=== PATIENT | female | born 1960 | race Caucasian/White ===

== ENCOUNTER → 2022-03-01 11:15 | Outpatient (ROUT) | payer BC, SELFPAY ==
[2022-03-01 12:46] LABS: COVID19 -Nasal RAPID Negative (Negative)
== END ==
PROVIDERS: Visit Provider Physician Assistant
DX: Z20.822 Contact with and (suspected) exposure to COVID-19 (principal)
CPT/HCPCS: 87635

== ENCOUNTER → 2023-01-06 13:37 | Outpatient (CLI) | payer BC, SELFPAY ==
--- NOTE | 2023-01-06 13:40 | DI.RAD.S_ITS ---
PROCEDURE: XR LUMBAR SPINE MIN 4V INDICATIONS: BACK PAIN TECHNIQUE: 5 views of the lumbar spine were acquired, including bilateral oblique views. COMPARISON: None. FINDINGS: Bones: 5 nonrib-bearing vertebrae are present. Grade 1 anterolisthesis of L4 on L5, likely due to facet arthrosis. Facet arthrosis L3 through S1. Moderate disc height loss at L4-5 and L5-S1, with mild disc height loss at remaining levels. Soft tissues: Overlying bowel gas pattern is normal. No suspicious soft tissue calcifications. Oblique images: No pars defects. IMPRESSION: Mild to moderate, multilevel degenerative disc disease and facet arthrosis. Grade 1 anterolisthesis of L4 on L5. Dictated by: Gabino Beck M.D. on 01/06/2023 at 14:20 Approved by: Gabino Beck M.D. on 01/06/2023 at 14:21
== END ==
PROVIDERS: PCP Registered Nurse Diabetes Educator; Referring Provider Physical Medicine & Rehabilitation; Visit Provider Physical Medicine & Rehabilitation
DX: M47.816 Spondylosis without myelopathy or radiculopathy, lumbar region (principal); M47.817 Spondylosis without myelopathy or radiculopathy, lumbosacral region; M51.36 Other intervertebral disc degeneration, lumbar region; M51.37 Other intervertebral disc degeneration, lumbosacral region; M43.16 Spondylolisthesis, lumbar region; M54.9 Dorsalgia, unspecified
CPT/HCPCS: 72110

== ENCOUNTER → 2023-01-25 15:17 | Outpatient (CLI) | payer BC, SELFPAY ==
--- NOTE | 2023-01-25 15:19 | DI.MRI.S_ITS ---
PROCEDURE: MR LUMBAR SPINE WO CON INDICATIONS: L5/S1 spondylolisthesis TECHNIQUE: Noncontrast sagittal T1 spin echo and T2 fast echo, sagittal STIR, and T2 fast spin echo through the lumbar spine. In cases with scoliosis, additional coronal T2 fast spin echo may be performed. COMPARISON: [facility], , L-SPINE WITHOUT CONTRAST, 09/02/2011, 11:01. FINDINGS: Image quality: Excellent. Alignment and Curvature: There is normal bony alignment. Bone Marrow: Marrow is of normal overall signal. No acute vertebral body compression fractures. Spinal Cord: Conus medullaris terminates at the L1 level. Visualized cord demonstrates normal signal and size. Paraspinous Soft Tissues: No paravertebral masses. T12-L1: Normal appearance. L1-L2: Broad-based disc bulge. Mild facet ligamentum flavum hypertrophy. No canal stenosis. No foraminal stenosis. Findings are unchanged when compared with the MRI dated July 02, 2012 L2-L3: Broad-based disc bulge. Mild disc desiccation and height loss. Moderate facet ligamentum flavum hypertrophy. Mild canal stenosis. Mild bilateral foraminal stenosis. These findings have slightly increased in severity when compared with the 2012 study. L3-L4: Moderate disc desiccation and height loss. Broad-based disc bulge. Severe facet ligamentum flavum hypertrophy. Severe canal stenosis. Mild right and moderate left foraminal stenosis. These findings of increased in severity when compared with the prior study. L4-L5: Moderate disc desiccation and height loss. Broad-based disc bulge. Severe facet and ligamentum flavum hypertrophy. Severe canal stenosis. Moderate bilateral foraminal narrowing. There is now mild flattening of the bilateral exiting nerve roots which is a new finding when compared with the prior study. L5-S1: Severe disc desiccation and height loss. Moderate facet ligamentum flavum hypertrophy. No canal stenosis. Mild bilateral foraminal stenosis. The degree of disc desiccation and height loss is increased when compared with the prior study. IMPRESSION: 1. Increase in canal stenosis and foraminal stenosis at L2-3, L3-4, L4-5 and L5-S1 when compared with the study dated September 02, 2011. Severe canal stenosis is present at L3-4 and L4-5. Moderate foraminal stenosis at L4-5 now demonstrates flattening of the bilateral exiting nerve roots. Dictated by: Fariha Collazo M.D. on 01/25/2023 at 16:25 Approved by: Fariha Collazo M.D. on 01/25/2023 at 16:32
== END ==
PROVIDERS: PCP Registered Nurse Diabetes Educator; Referring Provider Physical Medicine & Rehabilitation; Visit Provider Physical Medicine & Rehabilitation
DX: M47.816 Spondylosis without myelopathy or radiculopathy, lumbar region (principal); M43.17 Spondylolisthesis, lumbosacral region; M48.061 Spinal stenosis, lumbar region without neurogenic claudication; M48.07 Spinal stenosis, lumbosacral region
CPT/HCPCS: 72148

== ENCOUNTER 2023-02-08 13:55 | Outpatient (CLI) | payer BC, SELFPAY ==
[2023-02-08] VITALS (10 sets, daily range): BP systolic 107–141; BP diastolic 59–76; PULSE 71–84; RESP 12–21; TEMP 36.8; O2SAT 90–97
--- NOTE | 2023-02-08 13:59 | DI.RAD.S_ITS ---
PROCEDURE: PAIN L/S FACET INJ/BLK 1ST DARREL COMPARISON: None. INDICATIONS: SPONDYLOSIS FINDINGS: Access needle tips in the bilateral L4-L5 and L5-S1 facet joints. Injection of small amount of contrast material confirms positioning of the needle tips in the facet joints and extra thecal positioning. IMPRESSION: Access needle tips in the bilateral L4-L5 and L5-S1 facet joints for facet joint injection. Dictated by: Mitali Montes MD, PhD on 02/08/2023 at 15:31 Approved by: Mitali Montes MD, PhD on 02/08/2023 at 15:32
[2023-02-08] MEDS: MIDAZOLAM 2 MG/2 ML VIAL 4 MG IV (14:57)
[2023-02-08] MEDS: IOPAMIDOL 15 ML VIAL 3 ML INJ (15:00)
[2023-02-08] MEDS: BUPIVACAINE 0.5% (PF) 10 ML VIAL 5 ML INJ (15:00)
[2023-02-08] MEDS: BETAMETHASONE 30 MG/5 ML MDV 12 MG INJ (15:00)
[2023-02-08] MEDS: LIDOCAINE 1% 20 ML 5 ML INJ (15:00)
--- NOTE | 2023-02-08 15:16 | P.PCN_ITS ---
Date/Time/Diagnoses Date of procedure: 02/08/23 Time of procedure: 15:16 Pre-procedure diagnosis: 1. FACET ARTHROPATHY 2. AXIAL LBP 3. MULTILEVEL DDD Post-procedure diagnosis: same Procedure Notes Procedure: 1. FLUOROSCOPICALLY GUIDED CONTRAST CONTROLLED FACET JOINT INJECTIONS BILATERAL L4/5, L5/S1 Indications: Sunitha is referred by GORDON De Paz for treatment of Axial LBP Physician: Gary Acosta Total Fluoroscopy time (seconds): 18 Total sedation minutes: 19 Complications: none Procedure in detail & Post-procedure care: FINDINGS Multilevel Facet Arthropathy with Clinically significant axial LBP DESCRIPTION OF PROCEDURE Fluoroscopically guided, contrast-controlled bilateral L4/5, L5/S1 facet joint injections. Following review of allergy and review of potential side effects and complications, including, but not necessarily limited to, infection, allergic reaction, local tissue breakdown, stroke, temporary or permanent nerve injury, paralysis, and possible , the patient indicated that the patient understood and agreed to proceed. An informed consent document was signed by the patient, witnessed by a nurse, and placed in the patient's chart. Additionally, other treatment options including medications, modalities, and physical therapy were reviewed with the patient. After review of previous anaesthesic history and IV conscious sedation the patient was deemed safe to proceed with today?s procedure with IV conscious sedation as ASA class II designation. Safety time-out was performed to confirm patient ID, procedure to be performed and site of procedure. IV sedation was accomplished with a combination of 2mg of Versed was administered by the RN after DO order, titrated to patient comfort during the course of the procedure while the patient remained responsive to all verbal commands In the prone position, following sterile prep and drape of the lumbar region, the posterior aspect of the L4/5, L5/S1 facet joints were identified fluoroscopically. The skin was anesthetized via a 25-gauge 1.5inch needle with 1% lidocaine solution into the corresponding facet joints. At this point, a 22- gauge 3.5-inch spinal needle was atraumatically introduced and advanced under fluoroscopic guidance into the corresponding facet joints. Following negative aspiration, injections of approximately 0.2cc of Isovue 200 confirmed interarticular placement without vascular uptake. The identical procedure was then performed at the L4/5, L5/S1 facet joints on the left. Radiological data, including multiple fluoroscopic views of the lumbosacral spine, reveal a spinal needle at the L4/5, L5/S1 facet joints bilaterally. Subsequent views show flow of contrast material both superiorly and inferiorly within the joint space without vascular or intrathecal uptake. At this point, a total of 0.5cc including a mixture of 0.25cc Marcaine and 0.25cc betamethasone was injected without complication into each of the corresponding facet joints. The patient tolerated the procedure well without signs or symptoms of complications prior to transfer to the recovery area continued monitoring without incident. The patient was then transferred to the recovery area where they were observed for an appropriate period of time after the injection. The patient reported a VAS score of 8 prior to the procedure and a post- procedure VAS of 2. POST OP INSTRUCTIONS The patient was provided a Pain Log to continue to record their response to the target-specific procedure prior to follow-up visit with their referring physician. Additionally, specific post-injection care instructions and a contact number to our office were provided if concerns arise regarding possible complications associated with the procedure are suspected.
== END 2023-02-08 15:31 | disposition home or self-care (01) ==
LOC: RAD 13:56
PROVIDERS: PCP Registered Nurse Diabetes Educator; Referring Provider Physical Medicine & Rehabilitation; Visit Provider Physical Medicine & Rehabilitation
DX: M47.816 Spondylosis without myelopathy or radiculopathy, lumbar region (principal); M47.817 Spondylosis without myelopathy or radiculopathy, lumbosacral region; M51.36 Other intervertebral disc degeneration, lumbar region; M51.37 Other intervertebral disc degeneration, lumbosacral region
CPT/HCPCS: 64493; 64494; 99152; J0702; J2250

== ENCOUNTER → 2023-04-04 09:14 | Outpatient (CLI) | payer BC, SELFPAY ==
[2023-04-04 11:31] LABS: Hematocrit 44.6 % (36-46); Hemoglobin 14.7 g/dL (12.0-16.0); Mean Corpuscular Hemoglobin 28.6 PG (26-34); Mean Corpuscular Volume 86.6 fL (80-100); Platelet Count 230 X10^3/uL (150-400); Red Blood Cell Count 5.15 X10^6/uL (4.0-5.2); Red Cell Distribution Width 14.3 % (11.6-14.8); White Blood Cell Count 6.5 X10^3/uL (4.5-11.0)
[2023-04-04 11:43] LABS: Hemoglobin A1C% w Est Avg Glu 6.7 % (4.0-6.0)
[2023-04-04 11:49] LABS: Alanine Aminotransferase 12 IU/L (<35); Albumin 4.3 g/dL (3.5-5.0); Albumin Globulin Ratio 1.2 (1.0-2.8); Alkaline Phosphatase 66 U/L (38-126); Aspartate Aminotransferase 19 IU/L (14-36); BUN Creatinine Ratio 19.7 (6-22); Bilirubin Total 0.6 mg/dL (0.2-1.3); Blood Urea Nitrogen 15 mg/dL (7-17); Calcium 9.8 mg/dL (8.4-10.2); Carbon Dioxide 30 mmol/L (22-32); Chloride 101 mmol/L (98-107); Cholesterol 249 mg/dL (140-199); Estimated Glomerular Filt Rate > 60 mL/min (>60); Globulin 3.7 g/dL (1.7-4.1); Glucose 156 mg/dL (80-110); HDL Cholesterol 42 mg/dL (40-60); HEMOLYSIS < 15 (0-50); LDL Cholesterol Calculated 179 mg/dL (<100); Potassium 4.1 mmol/L (3.4-5.1); Sodium 139 mmol/L (137-145); Triglycerides 139 mg/dL (35-150)
[2023-04-04 12:08] LABS: HEMOLYSIS < 15 (0-50); Iron 93 ug/dL (37-170)
[2023-04-04 12:18] LABS: Percent Iron Saturation 29 % (15-50); Total Iron Binding Capacity 323 ug/dL (265-497); Transferrin 239 mg/dL (206-381)
[2023-04-04 12:24] LABS: Free T4, Direct Thyroxine 0.74 ng/dL (0.78-2.19)
[2023-04-04 12:25] LABS: Ferritin 60 ng/mL (11-264)
[2023-04-04 13:18] LABS: Creatinine Urine Random 158.1 mg/dL
[2023-04-04 13:22] LABS: Microalbumi Creatinin Ratio Ur 5.6 ug/mg CR (<30); Microalbumin Urine Random 0.9 mg/dL (0-1.6)
== END ==
PROVIDERS: PCP Registered Nurse Diabetes Educator; Referring Provider Registered Nurse Diabetes Educator; Visit Provider Registered Nurse Diabetes Educator
DX: E11.9 Type 2 diabetes mellitus without complications (principal); G25.81 Restless legs syndrome; Z00.00 Encounter for general adult medical examination without abnormal findings
CPT/HCPCS: 36415; 80053; 80061; 82043; 82570; 82728; 83036; 83540; 83550; 84439; 84443; 85027

== ENCOUNTER → 2023-07-20 07:39 | Outpatient (CLI) | payer BC, SELFPAY ==
[2023-07-20 09:06] LABS: Cholesterol 200 mg/dL (140-199); HDL Cholesterol 41 mg/dL (40-60); LDL Cholesterol Calculated 98 mg/dL (<100); Triglycerides 305 mg/dL (35-150)
[2023-07-20 09:08] LABS: Hemoglobin A1C% w Est Avg Glu 6.9 % (4.0-6.0)
[2023-07-20 09:30] LABS: Free T4, Direct Thyroxine 0.53 ng/dL (0.78-2.19)
[2023-07-20 09:44] LABS: Thyroid Stimulating Hormone 3.45 uIU/mL (0.47-4.68)
[2023-07-21 07:38] LABS: Thyroid Peroxidase Antibodies 100 IU/mL (0-34); Triiodothyronine T3 Total 76 ng/dL (71-180)
== END ==
PROVIDERS: PCP Registered Nurse Diabetes Educator; Referring Provider Registered Nurse Diabetes Educator; Visit Provider Registered Nurse Diabetes Educator
DX: E11.9 Type 2 diabetes mellitus without complications (principal); Z85.41 Personal history of malignant neoplasm of cervix uteri; E07.9 Disorder of thyroid, unspecified; E78.5 Hyperlipidemia, unspecified
CPT/HCPCS: 36415; 80061; 83036; 84439; 84443; 84480; 86376

== ENCOUNTER → 2023-08-15 09:01 | Outpatient (CLI) | payer BC, SELFPAY ==
--- NOTE | 2023-08-15 09:52 | DI.MRI.S_ITS ---
PROCEDURE: MR BRAIN (PITUITARY) WWO CON INDICATIONS: lab evidence of central hypothyroidism TECHNIQUE: Noncontrast sagittal and axial FLAIR, axial gradient echo, axial diffusion and ADC through the brain. Thin-slice sagittal and coronal T1 spin echo, coronal T2 fast spin echo through the pituitary. After the administration contrast, optional dynamic coronal T1 spin echo, thin-slice coronal and sagittal T1 spin echo images through the pituitary fossa; axial and coronal and sagittal T1 spin echo with fat saturation through the brain. COMPARISON: None. FINDINGS: Image quality: Excellent. Pituitary Gland: Normal in size signal characteristics. Appropriate enhancement. Infundibulum within normal limits. No suprasellar extension. However, there is a homogeneously enhancing extra-axial mass lesion associated with the left anterior free edge of the tentorial incisura consistent with a meningioma. Mass is equally distributed across the tentorium, and does extend into the left cavernous sinus. Cavernous ICA flow voids as well as Meckel's cave are preserved. Meningioma measures overall 2.0 x 1.8 by 1.5 cm. There is effacement of the prepontine cistern and mass effect on the left 5th trigeminal nerve as it enters Meckel's cave CSF Spaces: Ventricles are normal in size and shape. Basal cisterns are patent. No extra-axial fluid collections. Brain: No intracranial bleeds or mass effects. No abnormal intracranial enhancement. Tavarez-white matter interface is intact. Diffusion weighted images demonstrate no acute infarct. Brainstem is normal. Normal intravascular flow voids are present. Skull and face: Calvarial marrow is normal in signal. Orbits appear normal. Sinuses: Sinuses and mastoids are clear. IMPRESSION: Unremarkable pituitary gland without evidence of adenoma. 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 on 08/15/2023 at 15:16
[2023-08-15 11:51] LABS: Prolactin 9.9 ng/mL (3.0-18.6)
[2023-08-15 11:52] LABS: Follicle Stimulating Hormone 30.2 mIU/mL; Luteinizing Hormone 28.4 mIU/mL
[2023-08-15 12:07] LABS: Estradiol, Total 24.3 pg/mL; Testosterone 23.8 ng/dL (5.71-77.0)
[2023-08-17 15:09] LABS: IGF-1 175 ng/mL (57-202)
== END ==
PROVIDERS: PCP Registered Nurse Diabetes Educator; Referring Provider Registered Nurse Diabetes Educator; Visit Provider Registered Nurse Diabetes Educator
DX: E03.8 Other specified hypothyroidism (principal); E34.9 Endocrine disorder, unspecified; D32.9 Benign neoplasm of meninges, unspecified
CPT/HCPCS: 70553; 82670; 83001; 83002; 84146; 84305; 84403; A9579

== ENCOUNTER → 2023-10-21 09:53 | Outpatient (CLI) | payer BC, SELFPAY ==
[2023-10-21 11:43] LABS: Hemoglobin A1C% w Est Avg Glu 6.9 % (4.0-6.0)
[2023-10-21 11:56] LABS: Cholesterol 188 mg/dL (140-199); HDL Cholesterol 50 mg/dL (40-60); LDL Cholesterol Calculated 112 mg/dL (<100); Triglycerides 128 mg/dL (35-150)
== END ==
PROVIDERS: PCP Registered Nurse Diabetes Educator; Referring Provider Registered Nurse Diabetes Educator; Visit Provider Registered Nurse Diabetes Educator
DX: E78.5 Hyperlipidemia, unspecified (principal); E11.9 Type 2 diabetes mellitus without complications
CPT/HCPCS: 36415; 80061; 83036

== ENCOUNTER → 2023-11-22 09:15 | Outpatient (CLI) | payer BC, SELFPAY ==
--- NOTE | 2023-11-22 09:16 | DI.MRI.S_ITS ---
PROCEDURE: MR HEAD/BRAIN WO/W CON INDICATIONS: 3 mo fu L cavernous sinus Meningioma TECHNIQUE: Noncontrast axial T1 spin echo, axial T2 fast spin echo, sagittal and axial FLAIR, coronal T2 fast spin echo, axial gradient echo, axial diffusion and ADC through the brain. After the administration of contrast, axial and coronal and sagittal T1 spin echo with fat saturation through the brain. COMPARISON: [facility], MR, MR BRAIN (PITUITARY) WWO CON, 08/15/2023, 9:33. FINDINGS: Image quality: This examination is limited by involuntary motion artifact. CSF spaces: Basal cisterns are patent. No extra-axial fluid collections. Ventricles are normal in size and shape. Brain: Along the left aspect of the prepontine cistern, there is again seen an enhancing extra-axial mass, with maximum axial measurements of 2.4 x 1.8 cm, with a craniocaudal extent of 1.6 cm. When measured in a similar fashion, this is unchanged compared to the prior. This is seen along the edge of the tentorium and there is mild involvement of the adjacent cavernous sinus. No new masses are seen. No midline shift. There is cerebral volume loss for age. There is periventricular white matter chronic small vessel ischemic change. The brainstem appears normal. Diffusion-weighted images demonstrate no acute infarct. No chronic ischemic insults. Normal intravascular flow voids are present. Skull and face: Calvarial marrow is normal in signal. Orbits appear normal. Sinuses: Sinuses and mastoids appear clear. IMPRESSION: Stable extra-axial mass involving the left prepontine cistern along the margin of the tentorium, with mild involvement of the left cavernous sinus. When measured in a similar fashion, no significant change can be seen compared to the 08/15/2023 MRI. Dictated by: Rodrick Capps M.D. on 11/22/2023 at 10:19 Approved by: Rodrick Capps M.D. on 11/22/2023 at 10:23
== END ==
LOC: MRI 09:16
PROVIDERS: PCP Registered Nurse Diabetes Educator; Referring Provider Registered Nurse Diabetes Educator; Visit Provider Registered Nurse Diabetes Educator
DX: D32.9 Benign neoplasm of meninges, unspecified (principal)
CPT/HCPCS: 70553; A9579

== ENCOUNTER → 2024-07-31 10:40 | Outpatient (CLI) | payer BC, SELFPAY ==
--- NOTE | 2024-07-31 10:42 | DI.MRI.S_ITS ---
PROCEDURE: MR HEAD/BRAIN WO/W CON INDICATIONS: 6 mo f/u L cavernous sinus Meningioma TECHNIQUE: Noncontrast axial T1 spin echo, axial T2 fast spin echo, sagittal and axial FLAIR, coronal T2 fast spin echo, axial gradient echo, axial diffusion and ADC through the brain. After the administration of contrast, axial and coronal and sagittal T1 spin echo with fat saturation through the brain. COMPARISON: [facility], MR, MR BRAIN (PITUITARY) WWO CON, 08/15/2023, 9:33. [facility], MR, MR HEAD/BRAIN WO/W CON, 11/22/2023, 9:27. FINDINGS: Image quality: Excellent. CSF spaces: Basal cisterns are patent. No extra-axial fluid collections. Ventricles are normal in size and shape. Brain: There is again seen an enhancing extra-axial mass along the left skull base, partially involving the left cavernous sinus. This can be seen within the left prepontine cistern and along the medial aspect of the left middle cranial fossa, with partial involvement of the left tentorium. On the current images, this measures 2.4 x 1.9 cm in greatest axial dimension, with a craniocaudal extent of 1.5 cm. Previously, this measured 2.4 x 1.8 x 1.6 cm. No midline shift. No intracranial bleeds the at. There is cerebral volume loss for age. There is periventricular white matter chronic small vessel ischemic change. The brainstem appears normal. Diffusion-weighted images demonstrate no acute infarct. No chronic ischemic insults. Normal intravascular flow voids are present. Skull and face: Calvarial marrow is normal in signal. Orbits appear normal. Sinuses: Sinuses and mastoids appear clear. IMPRESSION: Unchanged extra-axial enhancing mass involving the left skull base, partially involving the left cavernous sinus. This represents a meningioma until proven otherwise. Dictated by: Rodrick Capps M.D. on 07/31/2024 at 11:54 Approved by: Rodrick Capps M.D. on 07/31/2024 at 11:57
== END ==
LOC: MRI 10:41
PROVIDERS: PCP Registered Nurse Diabetes Educator; Referring Provider Registered Nurse Diabetes Educator; Visit Provider Registered Nurse Diabetes Educator
DX: D32.0 Benign neoplasm of cerebral meninges (principal)
CPT/HCPCS: 70553; A9579